=== PATIENT | female | born 1930 | race American Indian/Alaskan Native ===

== ENCOUNTER 2020-07-24 14:23 | Emergency (ER) | payer MEDICARE, OTHER ==
[2020-07-24] MEDS ORDERED: Sodium Chloride 0.9% 1,000 ML IV ONE (15:34)
[2020-07-24] MEDS ORDERED: Sodium Chloride 0.9% 10 ML Syringe FLUSH PRN (15:34)
[2020-07-24] MEDS ORDERED: LORazepam 2 MG/ML SDV IVPUSH ONE (15:34)
[2020-07-24 16:53] VITALS: BP 178/94; PULSE 71
[2020-07-24 18:07] LABS: ANION GAP 13.4 mEq/L (7-13)
--- NOTE | 2020-07-27 10:54 | EDM.PDOCBH ---
Scribed by Lidia Cabrera 07/24/20 [id number] for Trung Benito MD ED HPI GENERAL MEDICAL PROBLEM - General Chief Complaint: Behavioral/Psych Stated Complaint: [id number] NERVOUS ANTSY ANXIOUS Time Seen by Provider: 07/24/20 17:02 Source of Information: Reports: Patient, RN, RN Notes Reviewed History Limitations: Reports: No Limitations - History of Present Illness INITIAL COMMENTS - FREE TEXT/NARRATIVE: Patient presents to ED by POV stating " I am antsy and tired. This has been going on for a week and I just don't feel good." Denies pain. States she is scared to be alone then when asked about it later states that she likes to be alone. She stated that when she was vacuuming on her legs felt weak. Patient drove self to ER. States she has sons in [facility], [facility] and a sister in [place]. Onset: Gradual Duration: Constant Location: Reports: Generalized Severity: Mild Improves with: Reports: None Worsens with: Reports: None Associated Symptoms: Reports: No Other Symptoms - Related Data Allergies Allergy/AdvReac Type Severity Reaction Status Date / Time No Known Allergies Allergy Verified 07/24/20 16:45 Home Meds: Home Meds Losartan [Cozaar] 25 mg PO DAILY 02/24/15 [History] Aspirin 81 mg PO DAILY 02/01/18 [History] Metoprolol Succinate [Toprol XL 50mg] 50 mg PO DAILY 02/01/18 [History] Past Medical History HEENT History: Reports: Hard of Hearing, Impaired Vision Other HEENT History: Wears glasses and hearing aids Cardiovascular History: Reports: Afib, Hypertension Respiratory History: Reports: None Gastrointestinal History: Reports: None Genitourinary History: Reports: None [employer] History: Reports: None Musculoskeletal History: Reports: None Neurological History: Reports: None Psychiatric History: Reports: None Endocrine/Metabolic History: Reports: None Hematologic History: Reports: None Immunologic History: Reports: None Oncologic (Cancer) History: Reports: None Dermatologic History: Reports: None - Past Surgical History Head Surgeries/Procedures: Reports: None Cardiovascular Surgical History: Reports: None Respiratory Surgical History: Reports: None GI Surgical History: Reports: None Female Surgical History: Reports: None Social & Family History - Tobacco Use Tobacco Use Status *Q: Never Tobacco User Second Hand Smoke Exposure: No - Caffeine Use Caffeine Use: Reports: Tea - Recreational Drug Use Recreational Drug Use: No - Living Situation & Occupation Living situation: Reports: , Alone Occupation: Retired ED ROS GENERAL - Review of Systems Review Of Systems: Comprehensive ROS is negative, except as noted in HPI. ED EXAM, BEHAVIORAL HEALTH - Physical Exam Exam: See Below Exam Limited By: No Limitations General Appearance: Alert, WD/WN, No Apparent Distress Eye Exam: Bilateral Eye: EOMI, Normal Inspection, PERRL Ears: Normal External Exam, Normal Canal, Hearing Grossly Normal, Normal TMs Nose: Normal Inspection, Normal Mucosa, No Blood Throat/Mouth: Normal Inspection, Normal Lips, Normal Teeth, Normal Gums, Normal Oropharynx, Normal Voice, No Airway Compromise Head: Atraumatic, Normocephalic Neck: Normal Inspection, Supple, Non-Tender, Full Range of Motion Respiratory/Chest: No Respiratory Distress, Lungs Clear, Normal Breath Sounds, No Accessory Muscle Use, Chest Non-Tender Cardiovascular: Normal Peripheral Pulses, Regular Rate, Rhythm, No Edema, No Gallop, No JVD, No Murmur, No Rub GI/Abdominal: Normal Bowel Sounds, Soft, Non-Tender, No Organomegaly, No Distention, No Abnormal Bruit, No Mass (Female) Exam: Deferred Rectal (Female) Exam: Deferred Back Exam: Normal Inspection, Full Range of Motion, NT Extremities: Normal Inspection, Normal Range of Motion, Non-Tender, Normal Capillary Refill, No Pedal Edema Neurological: Alert, CN II-XII Intact, Normal Cognition, Normal Gait, No Motor/Sensory Deficits, Oriented x 3 Psychiatric: Normal Mood, Other (Anxious) Skin Exam: Warm, Dry, Intact, Normal color, No rash COURSE, BEHAVIORAL HEALTH COMP - Course Vital Signs: Last Vital Signs Temp 98.0 F 07/24/20 16:47 Pulse 71 07/24/20 16:47 Resp BP 178/94 H 07/24/20 16:47 Pulse Ox 100 07/24/20 16:47 Orders, Labs, Meds: Laboratory Tests 07/24/20 07/24/20 07/24/20 Range/Units 17:05 17:23 17:23 WBC 6.4 (5.0-10.0) 10^3/uL RBC 4.76 (4.2-5.4) 10^6/uL Hgb 14.1 (12.0-16.0) g/dL Hct 43.7 (37.0-47.0) % MCV 91.8 (80-100) fL MCH 29.6 (27.0-34.0) pg MCHC 32.3 L (33.0-35.0) g/dL Plt Count 247 (150-450) 10^3/uL Neut % (Auto) 67.7 (42.2-75.2) % Lymph % (Auto) 19.6 L (20.5-50.1) % [place] % (Auto) 12.1 H (2-8) % Eos % (Auto) 0.3 L (1.0-3.0) % Baso % (Auto) 0.3 (0.0-1.0) % Sodium 140 (136-145) mmol/L Potassium 4.4 (3.5-5.1) mmol/L Chloride 105 (98-107) mmol/L Carbon Dioxide 26 (21-32) mmol/L Anion Gap 13.4 H (7-13) mEq/L BUN 21 H (7-18) mg/dL Creatinine 1.27 H (0.55-1.02) mg/dL Est Cr Clr Drug Dosing 24.22 mL/min Estimated GFR (MDRD) 40 BUN/Creatinine Ratio 16.5 (No establ ref range) Glucose 101 H (70-99) mg/dL Calcium 8.2 L (8.5-10.1) mg/dL Magnesium 2.2 (1.8-2.4) mg/dL Total Bilirubin 0.6 (0.2-1.0) mg/dL AST 13 L (15-37) U/L ALT 21 (14-59) U/L Alkaline Phosphatase 51 (46-116) U/L Total Protein 7.0 (6.4-8.2) g/dL Albumin 3.8 (3.4-5.0) g/dL Globulin 3.2 Albumin/Globulin Ratio 1.2 Urine Color Yellow (YELLOW) Urine Appearance Clear (CLEAR) Urine pH 5.5 (5.0-9.0) Ur Specific [place] 1.020 (1.005-1.030) Urine Protein Negative (NEGATIVE) Urine Glucose (UA) Negative (NEGATIVE) Urine Ketones Negative (NEGATIVE) Urine Occult Blood Trace-intact H (NEGATIVE) Urine Nitrite Negative (NEGATIVE) Urine Bilirubin Negative (NEGATIVE) Urine Urobilinogen 0.2 (0.2-1.0) mg/dL Ur Leukocyte Esterase Small H (NEGATIVE) Urine RBC 0-5 /HPF Urine WBC 0-5 (0-5/HPF) /HPF Ur Epithelial Cells Few (NOT SEEN) /HPF Urine Bacteria Moderate H (0-FEW/HPF) /HPF Medications Discontinued Medications Generic Name Dose Route Start Last Admin Trade Name Freq PRN Reason Stop Dose Admin Sodium Chloride 1,000 mls @ 999 mls/hr 07/24/20 15:34 Normal Saline IV 07/24/20 16:34 .BOLUS ONE Lorazepam 2 mg 07/24/20 15:34 Lorazepam 2 Mg/Ml Sdv IVPUSH 07/24/20 15:35 ONETIME ONE Sodium Chloride 10 ml 07/24/20 15:34 Sodium Chloride 0.9% 10 Ml Syringe FLUSH ASDIRECTED PRN Keep Vein Open Departure - Departure Time of Disposition: 17:53 Disposition: Home, Self-Care 01 Condition: Good Clinical Impression: Anxiety - Discharge Information *PRESCRIPTION DRUG MONITORING PROGRAM REVIEWED*: Not Applicable *COPY OF PRESCRIPTION DRUG MONITORING REPORT IN PATIENT SAIGE: Not Applicable Instructions: Managing Anxiety, Adult Referrals: Sherron Piña NP [Primary Care Provider] - Forms: ED Department Discharge Additional Instructions: Rx: Buspirone 7.5mg Follow up in 2 weeks with Sherron Piña [employer] [employer] for recheck. Sepsis Event Note (ED) - Evaluation Sepsis Screening Result: No Definite Risk I have read and agree with the documentation that has been completed regarding this visit. By signing this record, I attest that the documentation was completed in my physical presence and is an accurate record of the encounter.
== END 2020-07-24 18:10 | disposition home or self-care (01) ==
LOC: DL.ED 14:23
DX: F41.9 Anxiety disorder, unspecified (principal); I48.91 Unspecified atrial fibrillation; I10 Essential (primary) hypertension; Z79.82 Long term (current) use of aspirin; Z79.899 Other long term (current) drug therapy
CPT/HCPCS: 36415; 80053; 81001; 83735; 85025; 87086; 99283; 99283-25

== ENCOUNTER 2021-04-20 17:38 | Emergency (ER) | payer MEDICARE, OTHER ==
[2021-04-20 18:01] VITALS: BP 188/108; PULSE 86
[2021-04-20 18:37] LABS: ANION GAP 14.8 mEq/L (7-13); CHLORIDE,CL 102 mmol/L (98-107); SODIUM,NA 136 mmol/L (136-145)
[2021-04-20 18:43] LABS: PTT,PARTIAL THROMBOPLSTIN TIME 24.2 SEC (22.0-34.0)
[2021-04-20 18:53] LABS: CORONAVIRUS COVID-19 NAA NEGATIVE (NEGATIVE); RESPIRATORY SYNCYTIAL VIR NAA NEGATIVE (NEGATIVE)
[2021-04-20 19:52] LABS: AMPHETAMINES,URINE NEGATIVE (NEGATIVE); BARBITURATES,URINE NEGATIVE (NEGATIVE); BENZODIAZEPINE,URINE NEGATIVE (NEGATIVE); MDMA (ECSTASY), URINE NEGATIVE (NEGATIVE); METHADONE,URINE NEGATIVE (NEGATIVE); METHAMPHETAMINES,URINE NEGATIVE (NEGATIVE); OPIATES,URINE NEGATIVE (NEGATIVE); OXYCODONE,URINE NEGATIVE (NEGATIVE); PHENCYCLIDINE,URINE NEGATIVE (NEGATIVE); TCA,URINE NEGATIVE (NEGATIVE)
== END 2021-04-20 20:31 | disposition home or self-care (01) ==
LOC: DL.ED 17:38
DX: I48.20 Chronic atrial fibrillation, unspecified (principal); R53.83 Other fatigue; I10 Essential (primary) hypertension; Z79.82 Long term (current) use of aspirin; Z79.899 Other long term (current) drug therapy; Z20.822 Contact with and (suspected) exposure to COVID-19
CPT/HCPCS: 0241U; 36415; 70450; 71045; 80053; 80305-QW; 80307; 81001; 82947; 83605; 83735; 83880; 84443; 84484; 85025; 85610; 85730; 86140; 87086; 93005; 99285-25

== ENCOUNTER 2021-08-29 13:57 | Emergency (ER) | payer MEDICARE, OTHER ==
[2021-08-29] MEDS ORDERED: Sodium Chloride 0.9% 10 ML Syringe FLUSH PRN (14:02)
[2021-08-29 14:22] VITALS: BP 170/104; PULSE 100
[2021-08-29 14:46] LABS: ANION GAP 12.6 mEq/L (7-13)
[2021-08-29] MEDS ORDERED: Ketorolac 30 MG/ML SDV IVPUSH ONE (15:15)
== END 2021-08-29 15:40 | disposition home or self-care (01) ==
LOC: DL.ED 13:57
DX: R07.9 Chest pain, unspecified (principal); I48.91 Unspecified atrial fibrillation; I10 Essential (primary) hypertension; Z79.82 Long term (current) use of aspirin; Z79.899 Other long term (current) drug therapy; Z20.822 Contact with and (suspected) exposure to COVID-19
CPT/HCPCS: 36415; 71045; 80053; 83690; 83735; 84443; 84484; 85025; 85610; 86140; 93005; 99285-25; J3490